=== PATIENT | female | born 1950 | race African-American/Black ===

== ENCOUNTER 2019-06-20 18:27 | Emergency (ER) | payer MEDICARE, BC ==
[~2019-06-20] VITALS: Ht 157.5 cm; Wt 66.0 kg
[~2019-06-20 18:27] MED LIST: ATOR10TA PO; CARB200T PO; HYDR-519 PO
[2019-06-20] MEDS ORDERED: SODIUM CHLORIDE 0.9% 1,000 ML IV ONE (18:44)
[2019-06-20] MEDS ORDERED: MECLIZINE 25MG TABLET PO ONE (18:45)
[2019-06-20 19:32] LABS: BASOPHILS % 0.7 % (0.0-2.0); EOSINOPHILS % 1.6 % (0.0-5.0); HEMATOCRIT. 43.7 % (36.0-48.0); HEMOGLOBIN. 15.2 g/dL (12.0-16.0); LYMPHOCYTES % 35.9 % (20.0-50.0); MEAN CORPUSCULAR HEMOGLOBIN 33.2 pg (28.0-32.0); MEAN CORPUSCULAR VOLUME 95.1 fL (81.0-99.0); MEAN PLATELET VOLUME 8.1 fl (7.4-10.4); MONOCYTES % 8.8 % (2.0-8.0); PLATELET 281 x1000/uL (130-400); RED BLOOD CELL COUNT 4.59 mill/uL (4.2-5.4); RED CELL DISTRIBUTION WIDTH 13.5 % (11.6-14.6)
[2019-06-20 19:34] LABS: CLARITY URINE CLEAR (CLEAR); COLOR URINE YELLOW (YELLOW); KETONES URINE NEGATIVE (NEGATIVE); LEUKOCYTE ESTERASE URINE NEGATIVE (NEGATIVE); NITRITE URINE NEGATIVE (NEGATIVE); OCCULT BLOOD URINE NEGATIVE (NEGATIVE); PROTEIN URINE NEGATIVE (NEGATIVE); SPECIFIC GRAVITY URINE 1.005 (1.005-1.030); UROBILINOGEN URINE 0.2 E.U./dL (0.2-1.0)
[2019-06-20 19:38] LABS: CHLORIDE 106 mEq/L (98-107)
[2019-06-20 21:00] VITALS: BP 144/67
== END 2019-06-20 21:14 | disposition home or self-care (01) ==
LOC: ER 18:27
DX: R55 Syncope and collapse (principal); R42 Dizziness and giddiness; M79.7 Fibromyalgia; Z88.0 Allergy status to penicillin; Z88.6 Allergy status to analgesic agent; Z88.8 Allergy status to other drugs, medicaments and biological substances; Z79.899 Other long term (current) drug therapy
CPT/HCPCS: 36415; 70450; 71045; 80053; 81003; 85025; 93005; 96360; 99285; J7030; J8597